=== PATIENT | female | born 1950 | race African-American/Black ===

== ENCOUNTER 2016-07-26 19:16 | Inpatient (IN) | payer OTHER ==
--- NOTE | ~2016-07-26 | DS ---
Discharge Summary [facility] [address] [place]. [address] NAME: CHELSY SAUCEDA : 48 STATUS : DIS IN PAT#: [id number] AGE: 65 ADM/REG DATE : 07/26/16 MR#: [id number] REPORT SERV DATE: 08/01/16 DICTATED BY: AYESHA REECE DATE: 07/31/16 REPORT STATUS : Draft TRANSCRIBED BY: MODL DATE: 07/31/16 ADMISSION DATE: 07/26/2016 DISCHARGE DATE: 07/31/2016 PCP: Out of town physician in [place], [place]. CONSULTING PHYSICIAN: 1. Dr. Rao for Urology. 2. Dr. Shukri Feng, COMMUNITY DEVELOPMENT COORDINATOR. FINAL DIAGNOSES: 1. Acute diverticulitis, improving. 2. Uterine fibroids. 3. Urinary retention, resolved. 4. Hypertension. 5. Myasthenia gravis. 6. Status post hypokalemia. 7. Tobacco abuse. 8. Low TSH. DIAGNOSTIC EXAMS: Echocardiogram showing normal left ventricular size with preserved ejection fraction of 55% to 60%, mild left atrial enlargement, normal right ventricular size and systolic function, mild aortic valve sclerosis without stenosis. CAT scan of abdomen and pelvis showing multiple pelvic masses; moderate diverticulosis, ascending and descending colon; no acute diverticulitis pattern, although there is a possible thickened segment of the sigmoid colon in the left upper pelvis; simple hepatic cysts. Vaginal ultrasound showing lobulated masses arising from the uterus and an obscured portion of the uterus, may represent leiomyomas or sarcoma, were identified. The endometrial stripe is abnormal in appearance, thickness of 6 mm. Findings suggest endometrial hyperplasia, neoplasia, small volume ascites. HOSPITAL COURSE: Please refer to the H and P done by Dr. Owens dated on 07/27/2016. Briefly, this is a 65-year-old female from the [place], comes in for abdominal pain. The patient admitted to be following up with the doctor in the [place] and had an acute diverticulitis at that time. She also was being followed by COMMUNITY DEVELOPMENT COORDINATOR and she was told that she has uterine fibroids and that just needs to be followed up. The patient came here to visit her family and she started having some abdominal pain, nausea, and vomiting. The patient then came to the emergency room, was found to have an acute diverticulitis and was placed on antibiotics. The patient was then found to have a urinary retention when a Gutierrez was placed and Urology consultation was done. Further evaluation revealed that the patient has pelvic masses. A COMMUNITY DEVELOPMENT COORDINATOR consult and an ultrasound was done. She was seen in consultation by Dr. Feng who believes that these are all uterine fibroids and to follow up as an outpatient. This was offered to the patient, but she said that she will be going back to [place] and she has a COMMUNITY DEVELOPMENT COORDINATOR person there. Meanwhile, we got Dr. Rao involved for the urinary retention and he wanted to follow up the patient as an outpatient. Throughout her stay here, she wanted the Gutierrez out, so we discontinued it and she was able to urinate without any problems. Discharge Summary [place] [id number] [facility] [place] [place]. [address] NAME: CHELSY SAUCEDA : 49 STATUS : DIS IN PAT#: [id number] AGE: 65 ADM/REG DATE : 07/26/16 MR#: [id number] REPORT SERV DATE: 08/01/16 DICTATED BY: AYESHA REECE DATE: 07/31/16 REPORT STATUS : Draft TRANSCRIBED BY: TUNDE DATE: 07/31/16 Meanwhile, she continued having this pain, initially needing IV Dilaudid, however, she said that the pain is getting better, that she was not taking it for the last 24 hours and just getting the Percocet. She expressed her wishes to go home. Vital signs are stable. I told her that the white count is still elevated and she needs to follow up with her doctors and to continue the antibiotics. She rather go home and do this, but she was warned that if there is increase in pain, bleeding, nausea and vomiting, fever, not to hesitate to come back to the emergency room. She wanted a copy of her labs and imaging, I will ask my departmental secretary to do that and she will need to follow up with her PCP and COMMUNITY DEVELOPMENT COORDINATOR as soon as she gets to [place]. Her home medications would be multivitamin once a day, Procardia XL 60 mg a day, Mestinon 120 mg every four hours, Gas-X 80 mg p.r.n., Artificial Tears as needed, Pepto-Bismol as needed. She will be given three prescriptions for Levaquin 500 mg p.o. daily and Flagyl 500 mg p.o. t.i.d. both for 10 more days and then Percocet 7.5/325 one tablet p.o. q.8 h., I am going to give her 30 tablets of this. This has been explained to the patient at length with multiple questions answered. TIME SPENT: 40 minutes. ROWENA/TUNDE Ayesha Reece M.D. / [id number] CC: Ayesha Reece M.D.
--- NOTE | ~2016-07-26 | HP ---
History And Physical [place] [address] [facility] [place]. [address] NAME: CHELSY SAUCEDA : 49 STATUS : ADM IN [facility]#: [id number] AGE: 65 ADM/REG DATE : 07/26/16 MR#: [id number] REPORT SERV DATE: 07/27/16 DICTATED BY: CED STERLING DATE: 07/27/16 REPORT STATUS : Draft TRANSCRIBED BY: TUNDE DATE: 07/27/16 DATE OF ADMISSION: 07/26/2016 CHIEF COMPLAINT: A 65-year-old female visiting from [place], [place], now presenting with significant abdominal pain with vomiting. HISTORY OF PRESENTING ILLNESS: The patient's history was obtained through careful interview with the patient and sister. The patient states that she was in usual state of health when only in the morning of admission after eating a large breakfast of sausage eggs, grits, and milk, developed extreme, nausea, vomiting, and new-onset abdominal pain. She describes left lower quadrant abdominal pain that radiates into suprapubic area, is cramping quality, 9/10 severity. She developed elevated blood pressure, rigors, and chills, but no fevers. She had a dry mouth, felt lightheaded, and states she almost passed out. No recent illness otherwise. No blood in her stool. No weight loss. No shortness of breath. REVIEW OF SYSTEMS: Otherwise, a 14-point review of systems was obtained and was negative. PAST MEDICAL HISTORY: 1. Myasthenia gravis. 2. Hypertension. PAST SURGICAL HISTORY: Denies any. ALLERGIES: NO KNOWN DRUG ALLERGIES. SOCIAL HISTORY: The patient lives in [place], [place]. She is single, visiting her sister. She has four children, two who live in [place] and two who live in [place]. She smokes cigarettes, but does not drink alcohol. FAMILY HISTORY: Mother is on dialysis. Father was blind. CURRENT MEDICATIONS: Include eye drops, Pepto-Bismol, ear wax solution, ibuprofen p.r.n., multivitamin, naproxen p.r.n., nifedipine extended release 60 mg p.o. daily, Mestinon 120 mg p.o. q.4 hours scheduled, Gas-X p.r.n. PHYSICAL EXAMINATION: VITAL SIGNS: Temperature 97.8, pulse 69, blood pressure 200/91, respiratory rate 20, O2 History And Physical [address] [place]. [address] NAME: CHELSY SAUCEDA : 49 STATUS : ADM IN PAT#: [id number] AGE: 65 ADM/REG DATE : 07/26/16 MR#: [id number] REPORT SERV DATE: 07/27/16 DICTATED BY: CED STERLING DATE: 07/27/16 REPORT STATUS : Draft TRANSCRIBED BY: TUNDE DATE: 07/27/16 saturation 99% on room air. GENERAL: A pleasant, cooperative female, but in evidence of some distress secondary to her ongoing abdominal discomfort. HEENT: Pupils equal, round, and reactive to light. No conjunctival pallor. No scleral icterus. Nares are patent. Oropharynx is clear of obstruction. Mildly dry mucous membranes. NECK: Trachea midline. No thyromegaly. LYMPH: No cervical lymphadenopathy. No supraclavicular lymphadenopathy. RESPIRATORY: Generally clear to auscultation at the bases. No wheezes, no rales, no rhonchi. The patient has a normal respiratory effort. CARDIOVASCULAR: Regular rate and rhythm. The patient does have what appears to be an S4 gallop and a likely systolic 3/6 murmur. There is also noted pulsatile jugular venous distention up to the angle of the jaw. No current extremity edema is appreciated, though. ABDOMEN: The patient has significant left lower quadrant and suprapubic abdominal discomfort, no guarding though, no rebound. A nondistended abdomen with active bowel tones. No hepatosplenomegaly. DERMATOLOGICAL: Warm and dry extremities. No pallor, no cyanosis. PSYCHIATRIC: Normal affect. Good mood. Alert and oriented x3. LABORATORY DATA: White blood cell count 13.1, hemoglobin 14, hematocrit 44, platelets 309. Sodium 142, potassium 3.4, chloride 105, bicarb 25, BUN 16, creatinine 0.9, glucose 171, lipase 87. Liver enzymes within normal limits. STUDIES: CT scan of the abdomen and pelvis shows pelvic masses up to 5.8 x 5.9 x 6.4 cm. There is urinary retention with bladder distention. There may be some subtle changes of diverticulitis. ASSESSMENT AND PLAN: 1. Acute diverticulitis. I believe this is the main cause of her current symptoms. By exam, she has left lower quadrant abdominal discomfort, her white blood cell count of 13.1, and there seem to be subtle CT scan changes. We will place on IV antibiotics and monitor. 2. Pelvic masses. Check a CA-125. Check ultrasound of the pelvis. Consult component inspector, Dr. Shukri Feng. 3. Bladder obstruction. Place Gutierrez catheter. Consult Urology, Dr. Elder. 4. Hypertensive urgency. Obtain better pain control. Use p.r.n. medications. 5. Murmur with an S4 gallop and jugular venous distention. Check an echocardiogram. [facility]/EMILE Ced Sterling M.D. / [id number] History And Physical [address] [address] NAME: HCELSY SAUCEDA : 48 STATUS : ADM IN PAT#: [id number] AGE: 65 ADM/REG DATE : 07/26/16 MR#: [id number] REPORT SERV DATE: 07/27/16 DICTATED BY: CED STERLING DATE: 07/27/16 REPORT STATUS : Draft TRANSCRIBED BY: TUNDE DATE: 07/27/16 CC: Bernard Puckett M.D.
--- NOTE | ~2016-07-26 | CN ---
Consultation Report [facility] [address] [place]. [address] NAME: CHELSY SAUCEDA : 48 STATUS : ADM IN [facility]#: [id number] AGE: 65 ADM/REG DATE : 07/26/16 MR#: [id number] REPORT SERV DATE: 07/28/16 DICTATED BY: SCOTT SHANNON DATE: 07/28/16 REPORT STATUS : Draft TRANSCRIBED BY: TUNDE DATE: 07/28/16 CONSULTATION DATE OF CONSULTATION: 07/27/2016 REASON FOR CONSULTATION: Pelvic masses. HISTORY: This is a 65-year-old black female, 3, para 4, menopausal for 15 years, admitted for abdominal pain. Gastritis on 07/26/2016, she is visiting from [place]. The onset of her abdominal pain and nausea came after eating a heavy breakfast. Pain is consistent with the pain she has had in the past from diverticulitis, but severe on day of admission. She has no pelvic bleeding or pain in the past from gynecological problems. No history of urinary retention. She does have a history of diverticulitis and avoids corn and nuts. PAST SURGICAL HISTORY: No past surgical history. PAST MEDICAL HISTORY: Include hypertension and myasthenia gravis. MEDICATIONS: Include Procardia 60 mg a day and pyridostigmine bromide for myasthenia gravis. ALLERGIES: NO KNOWN ALLERGIES. CT AND ULTRASOUND CONSISTENT WITH MULTIPLE UTERINE FIBROIDS PEDUNCULATED OR WITHIN THE UTERINE DAVIS ITSELF APPROXIMATELY 5 CM TO 6 CM. NORMAL PERITONEAL FLUID, NORMAL ENDOMETRIAL THICKENING AT 6 MM. PHYSICAL EXAMINATION: GENERAL: Well developed, well nourished, black female in no apparent distress. ABDOMEN: Subjectively pain improved, but still with left upper quadrant or left CVA tenderness. Abdomen with uterine fundus consistent with approximately 16-week size uterus. Abdomen is benign and soft. Gutierrez catheter is in place, which was placed in the emergency room for urinary retention. IMPRESSION: Diverticulitis acute, asymptomatic uterine fibroids, possible urinary retention. PLAN: To follow up the patient after discharge unless fibroids or uterus were thought to be a factor in the urinary retention. CIRILO/TUNDE Scott Consultation Report [facility] [address] [facility] [address] NAME: CHELSY SAUCEDA : [birth year] STATUS : ADM IN PAT#: [id number] AGE: 65 ADM/REG DATE : 07/26/16 MR#: [id number] REPORT SERV DATE: 07/28/16 DICTATED BY: SCOTT SHANNON DATE: 07/28/16 REPORT STATUS : Draft TRANSCRIBED BY: MODL DATE: 07/28/16 Sal Shannon / [id number] CC: Bernard Puckett M.D.
--- NOTE | ~2016-07-26 | CN ---
Consultation Report [facility] [address] [place]. [address] NAME: CHELSY SAUCEDA : 48 STATUS : ADM IN [facility]#: [id number] AGE: 65 ADM/REG DATE : 07/26/16 MR#: [id number] REPORT SERV DATE: 07/28/16 DICTATED BY: CHETAN CASTILLO DATE: 07/27/16 REPORT STATUS : Draft TRANSCRIBED BY: MODuBtch DATE: 07/27/16 CONSULTATION DATE OF CONSULTATION: 07/27/2016 REASON FOR CONSULTATION: Urinary retention. HISTORY OF PRESENT ILLNESS: Ms. Sauceda is a 65-year-old female who hails from the from [facility]. She is here visiting family. She was in her usual state of health when she was found to have urinary retention and abdominal pain. She presented to the ER. A Gutierrez catheter was placed. She had 600 mL of urine in her bladder. She is found to have multiple uterine masses, which appeared to be fibroids and according to her are a known entity. Her past urologic history is notable for straining and double voiding at night. She does not have a urologist. She is not followed by symptoms. This has never happened in the past. I have been asked to consult given her urinary retention. PAST MEDICAL HISTORY: Myasthenia gravis and hypertension. SURGICAL HISTORY: None. ALLERGIES: NONE. SOCIAL HISTORY: Lives in [place]. She is single. She has 4 kids. She smokes cigarettes. She does not drink alcohol. FAMILY HISTORY: Noncontributory. MEDICATIONS: Reviewed and listed in the chart. REVIEW OF SYSTEMS: A 12-point review of systems was performed. Pertinent positives listed in the HPI. PHYSICAL EXAMINATION: VITAL SIGNS: Temperature 98.1, pulse in the 60s, blood pressure 126/65, saturating 97% on room air. GENERAL: She is in no acute distress. She appears her stated age. HEENT: Her head is normocephalic and atraumatic. LUNGS: Breathing is nonlabored. She is . Her pulse is regular in rate and rhythm. ABDOMEN: Soft, nontender, nondistended. She has no CVA tenderness. She is alert oriented x3. Her urine is clear. LABORATORY DATA: Her white count is 12.1 and hemoglobin is 0.9. Urinalysis is negative for infection. Consultation Report [place] [address] [place]. [address] NAME: CHELSY SAUCEDA : [birth year] STATUS : ADM IN PAT#: [id number] AGE: 65 ADM/REG DATE : 07/26/16 MR#: [id number] REPORT SERV DATE: 07/28/16 DICTATED BY: CHETAN CASTILLO DATE: 07/27/16 REPORT STATUS : Draft TRANSCRIBED BY: TUNDE DATE: 07/27/16 IMAGING: CT scan of the abdomen pelvis without contrast was performed. She has a large pelvic masses, which seemed to be fibroids, on pelvic ultrasound. She has no hydronephrosis. ASSESSMENT AND PLAN: Ms. Sauceda has urinary retention in the setting of active diverticulitis as well as uterine fibroids. I explained to her that this is either an obstructive process from her uterus versus decreased detrusor function in the setting of a nearby infection. Either case, she needs to have a catheter for 5 days. On Monday, we will discharge her catheter either in the hospital or over my office. If she is able to void, then she is unable to void or if she needs further workup including cystoscopy and possible urodynamics to determine this is an obstructive versus detrusor failure issue. Please call if further questions. VARUN/TUNDE Chetan Castillo MD / [id number] CC: Bernard Puckett M.D.
[2016-07-26 16:42] LABS: BASOPHILS 0.6 %; BASOPHILS ABSOLUTE 0.08 10/3/uL (0.0-0.16); EOSINOPHILS 0.2 %; EOSINOPHILS ABSOLUTE 0.02 10/3/uL (0.0-0.53); ER CBC TAT 0 Hrs 05 Mins; HEMATOCRIT 43.8 % (36.0-48.0); HEMOGLOBIN 14.4 g/dL (12.0-16.0); IMMATURE GRANULOCYTES 0.3 %; IMMATURE GRANULOCYTES ABSOLUTE 0.04 10/3/uL (0.0-0.11); LYMPHOCYTES 14.8 %; LYMPHOCYTES ABSOLUTE 1.94 10/3/uL (0.67-4.30); MEAN CORPUS HGB CONC 32.9 g/dL (32.0-36.0); MEAN CORPUSCULAR HEMOGLOB 29.1 pg (26.0-34.0); MEAN CORPUSCULAR VOLUME 88.7 fL (80-100); MONOCYTES 3.1 %; MONOCYTES ABSOLUTE 0.41 10/3/uL (0.21-1.20); NEUTROPHILS ABSOLUTE 10.62 10/3/uL (2.02-8.40); PLATELET COUNT 309 10/3/uL (150-400); RBC DISTRIBUTION WIDTH 16.6 % (12.0-16.0); RED CELL COUNT 4.94 10/6/uL (4.0-5.6); WHITE BLOOD CELLS 13.1 10/3/uL (4.5-10.5)
[2016-07-26 16:43] LABS: MANUAL DIFF NO %
[2016-07-26 17:01] LABS: A/G RATIO 0.9 (0.7-1.9); ALBUMIN 4.2 G/DL (3.5-5.0); ALKALINE PHOSPHATASE 97 U/L (45-117); BUN (BLOOD UREA NITROGEN) 16 MG/DL (6-23); CALCIUM, SERUM 9.3 MG/DL (8.5-10.4); CHLORIDE, SERUM 105 MMOL/L (96-112); CO2 (CARBON DIOXIDE) 25 MMOL/L (24-34); GFR AFRICAN AMERICAN 77 ML/MIN (>=60); GFR NON AFRICAN AMERICAN 67 ML/MIN (>=60); GLOBULIN 4.5 G/DL (2.5-4.1); GLUCOSE, SERUM 171 MG/DL (60-99); POTASSIUM, SERUM 3.4 MMOL/L (3.5-5.3); SGOT(AST) 18 U/L (5-40); SGPT(ALT) 17 U/L (5-65); SODIUM, SERUM 142 MMOL/L (135-148); TOTAL BILIRUBIN 0.5 MG/DL (0-1.2); TOTAL PROTEIN 8.7 G/DL (6.0-8.5)
[2016-07-26 17:43] LABS: WBC (NOT ORDERED) (RFLEX) 0 (0-5)
[2016-07-26 17:50] LABS: ASCORBIC ACID (UR NOT ORDER) NEG (NEG); BILIRUBIN, URINE NEGATIVE (NEG); ER URINALYSIS TAT 0 Hrs 07 Mins; KETONE, URINE 20 MG/DL (NEG); LEUKOCYTE ESTERASE(NOT OR NEG (NEG); NITRITE (URINE) NEG (NEG)
[2016-07-26] MEDS ORDERED: NXL6 PO (20:44)
[2016-07-26] MEDS ORDERED: PYRID60 PO ×2 (20:46→20:47)
[2016-07-26] MEDS ORDERED: IBU400 PO (20:49)
[2016-07-26] MEDS ORDERED: THERGRANM PO (20:49)
[2016-07-26] MEDS ORDERED: GAS-X80 MG PO (20:50)
[2016-07-26] MEDS ORDERED: TEARS PLUS OPH (20:51)
[2016-07-26] MEDS ORDERED: ALEVE220 MG PO (20:53)
[2016-07-26] MEDS ORDERED: [UNRECOGNIZED DRUG - OTHER] OT (20:53)
[2016-07-26] MEDS ORDERED: PEPTO BISMOL LIQ1 ML PO (20:55)
[2016-07-26] MEDS ORDERED: CHLORASEPTIC LOZENGE PO (20:57)
[2016-07-27 06:56] LABS: BASOPHILS 0.2 %; BASOPHILS ABSOLUTE 0.03 10/3/uL (0.0-0.16); EOSINOPHILS 0.1 %; EOSINOPHILS ABSOLUTE 0.01 10/3/uL (0.0-0.53); HEMOGLOBIN 13.2 g/dL (12.0-16.0); IMMATURE GRANULOCYTES 0.2 %; IMMATURE GRANULOCYTES ABSOLUTE 0.02 10/3/uL (0.0-0.11); LYMPHOCYTES 19.4 %; LYMPHOCYTES ABSOLUTE 2.34 10/3/uL (0.67-4.30); MEAN CORPUS HGB CONC 33.8 g/dL (32.0-36.0); MEAN CORPUSCULAR HEMOGLOB 29.7 pg (26.0-34.0); MEAN CORPUSCULAR VOLUME 87.9 fL (80-100); MEAN PLATELET VOLUME 10.3 fL (9.2-13.0); MONOCYTES 7.2 %; MONOCYTES ABSOLUTE 0.87 10/3/uL (0.21-1.20); NEUTROPHILS 72.9 %; NEUTROPHILS ABSOLUTE 8.78 10/3/uL (2.02-8.40); PLATELET COUNT 274 10/3/uL (150-400); RBC DISTRIBUTION WIDTH 16.5 % (12.0-16.0); RED CELL COUNT 4.45 10/6/uL (4.0-5.6); WHITE BLOOD CELLS 12.1 10/3/uL (4.5-10.5)
[2016-07-27 06:58] LABS: HEMATOCRIT 39.1 % (36.0-48.0); MANUAL DIFF NO %
[2016-07-27 07:02] LABS: INTERNATIONAL NORMAL RATI 1.2 UNITS (-); PARTIAL THROMBO TIME 27.6 SEC (22.5-37.2); PROTIME (NOT ORD) 14.9 SEC (12.0-14.5)
[2016-07-27 07:50] LABS: BUN (BLOOD UREA NITROGEN) 18 MG/DL (6-23); CALCIUM, SERUM 8.8 MG/DL (8.5-10.4); CHLORIDE, SERUM 108 MMOL/L (96-112); CO2 (CARBON DIOXIDE) 27 MMOL/L (24-34); CREATININE 0.93 MG/DL (0.55-1.02); GFR AFRICAN AMERICAN 74 ML/MIN (>=60); GFR NON AFRICAN AMERICAN 64 ML/MIN (>=60); POTASSIUM, SERUM 3.5 MMOL/L (3.5-5.3); SGOT(AST) 14 U/L (5-40); SGPT(ALT) 14 U/L (5-65); SODIUM, SERUM 143 MMOL/L (135-148); TOTAL BILIRUBIN 0.5 MG/DL (0-1.2); TOTAL PROTEIN 7.3 G/DL (6.0-8.5); TROPONIN I <0.02 NG/ML (<0.05)
[2016-07-27 07:51] LABS: A/G RATIO 0.8 (0.7-1.9); ALBUMIN 3.3 G/DL (3.5-5.0); ALKALINE PHOSPHATASE 66 U/L (45-117); GLUCOSE, SERUM 93 MG/DL (60-99)
[2016-07-27 08:02] LABS: PROCALCITONIN 0.05 ng/mL (<0.5)
[2016-07-28 13:12] LABS: HEMATOCRIT 38.4 % (36.0-48.0); HEMOGLOBIN 12.3 g/dL (12.0-16.0); MEAN CORPUSCULAR HEMOGLOB 29.1 pg (26.0-34.0); MEAN PLATELET VOLUME 10.7 fL (9.2-13.0); PLATELET COUNT 251 10/3/uL (150-400); RBC DISTRIBUTION WIDTH 16.6 % (12.0-16.0); RED CELL COUNT 4.23 10/6/uL (4.0-5.6); WHITE BLOOD CELLS 10.8 10/3/uL (4.5-10.5)
[2016-07-28 13:15] LABS: MANUAL DIFF YES %; MEAN CORPUSCULAR VOLUME 90.8 fL (80-100)
[2016-07-28 13:25] LABS: BUN (BLOOD UREA NITROGEN) 16 MG/DL (6-23); CALCIUM, SERUM 8.7 MG/DL (8.5-10.4); CHLORIDE, SERUM 109 MMOL/L (96-112); CO2 (CARBON DIOXIDE) 26 MMOL/L (24-34); CREATININE 0.92 MG/DL (0.55-1.02); GFR AFRICAN AMERICAN 75 ML/MIN (>=60); GFR NON AFRICAN AMERICAN 65 ML/MIN (>=60); GLUCOSE, SERUM 89 MG/DL (60-99); POTASSIUM, SERUM 3.7 MMOL/L (3.5-5.3); SODIUM, SERUM 140 MMOL/L (135-148)
[2016-07-28 13:41] LABS: BAND NEUTROPHILS 1 %; BASOPHILS 1 %; BASOPHILS ABSOLUTE (CALC) 0.11 10/3/uL (0.0-0.16); LYMPHOCYTES 18 %; LYMPHOCYTES ABSOLUTE (CALC) 1.94 10/3/uL (0.67-4.30); MONOCYTES 3 %; MONOCYTES ABSOLUTE (CALC) 0.32 10/3/uL (0.21-1.20); NEUTROPHILS ABSOLUTE (CALC) 8.42 10/3/uL (2.02-8.40); PLATELET ESTIMATE ADQ (ADEQUATE); SEGMENTED NEUTROPHIL (0) 77 %; TOTAL NUCLEATED CELLS 100
[2016-07-28 13:42] LABS: RBC MORPHOLOGY NORM (NORMAL)
[2016-07-29 05:38] LABS: BASOPHILS 0.4 %; BASOPHILS ABSOLUTE 0.05 10/3/uL (0.0-0.16); EOSINOPHILS 0.4 %; EOSINOPHILS ABSOLUTE 0.06 10/3/uL (0.0-0.53); HEMATOCRIT 35.6 % (36.0-48.0); HEMOGLOBIN 11.7 g/dL (12.0-16.0); IMMATURE GRANULOCYTES 0.1 %; IMMATURE GRANULOCYTES ABSOLUTE 0.02 10/3/uL (0.0-0.11); LYMPHOCYTES 15.1 %; LYMPHOCYTES ABSOLUTE 2.02 10/3/uL (0.67-4.30); MEAN CORPUS HGB CONC 32.9 g/dL (32.0-36.0); MEAN CORPUSCULAR HEMOGLOB 29.4 pg (26.0-34.0); MEAN CORPUSCULAR VOLUME 89.4 fL (80-100); MEAN PLATELET VOLUME 10.3 fL (9.2-13.0); MONOCYTES ABSOLUTE 1.47 10/3/uL (0.21-1.20); NEUTROPHILS ABSOLUTE 9.74 10/3/uL (2.02-8.40); PLATELET COUNT 237 10/3/uL (150-400); RBC DISTRIBUTION WIDTH 16.2 % (12.0-16.0); RED CELL COUNT 3.98 10/6/uL (4.0-5.6); WHITE BLOOD CELLS 13.4 10/3/uL (4.5-10.5)
[2016-07-29 05:41] LABS: MANUAL DIFF NO %
[2016-07-29 05:55] LABS: BUN (BLOOD UREA NITROGEN) 15 MG/DL (6-23); CALCIUM, SERUM 8.9 MG/DL (8.5-10.4); CHLORIDE, SERUM 108 MMOL/L (96-112); CO2 (CARBON DIOXIDE) 25 MMOL/L (24-34); CREATININE 0.74 MG/DL (0.55-1.02); GFR AFRICAN AMERICAN 98 ML/MIN (>=60); GFR NON AFRICAN AMERICAN 84 ML/MIN (>=60); GLUCOSE, SERUM 106 MG/DL (60-99); POTASSIUM, SERUM 3.8 MMOL/L (3.5-5.3); SODIUM, SERUM 141 MMOL/L (135-148)
[2016-07-30 07:42] LABS: BASOPHILS 0.3 %; BASOPHILS ABSOLUTE 0.04 10/3/uL (0.0-0.16); EOSINOPHILS 0.6 %; EOSINOPHILS ABSOLUTE 0.08 10/3/uL (0.0-0.53); HEMATOCRIT 35.2 % (36.0-48.0); IMMATURE GRANULOCYTES 0.4 %; IMMATURE GRANULOCYTES ABSOLUTE 0.05 10/3/uL (0.0-0.11); MEAN CORPUS HGB CONC 34.1 g/dL (32.0-36.0); MEAN CORPUSCULAR HEMOGLOB 30.2 pg (26.0-34.0); MEAN CORPUSCULAR VOLUME 88.7 fL (80-100); MEAN PLATELET VOLUME 11.1 fL (9.2-13.0); MONOCYTES 10.7 %; MONOCYTES ABSOLUTE 1.53 10/3/uL (0.21-1.20); NEUTROPHILS ABSOLUTE 10.55 10/3/uL (2.02-8.40); PLATELET COUNT 263 10/3/uL (150-400); RED CELL COUNT 3.97 10/6/uL (4.0-5.6); WHITE BLOOD CELLS 14.3 10/3/uL (4.5-10.5)
[2016-07-30 07:44] LABS: MANUAL DIFF NO %
[2016-07-31 06:25] LABS: BASOPHILS 0.3 %; BASOPHILS ABSOLUTE 0.04 10/3/uL (0.0-0.16); EOSINOPHILS 0.5 %; EOSINOPHILS ABSOLUTE 0.08 10/3/uL (0.0-0.53); HEMATOCRIT 34.6 % (36.0-48.0); HEMOGLOBIN 11.7 g/dL (12.0-16.0); IMMATURE GRANULOCYTES 0.3 %; IMMATURE GRANULOCYTES ABSOLUTE 0.04 10/3/uL (0.0-0.11); LYMPHOCYTES ABSOLUTE 1.93 10/3/uL (0.67-4.30); MEAN CORPUS HGB CONC 33.8 g/dL (32.0-36.0); MEAN CORPUSCULAR HEMOGLOB 29.8 pg (26.0-34.0); MEAN PLATELET VOLUME 10.4 fL (9.2-13.0); MONOCYTES 10.1 %; NEUTROPHILS 75.8 %; NEUTROPHILS ABSOLUTE 11.22 10/3/uL (2.02-8.40); PLATELET COUNT 280 10/3/uL (150-400); RBC DISTRIBUTION WIDTH 15.9 % (12.0-16.0); RED CELL COUNT 3.93 10/6/uL (4.0-5.6); WHITE BLOOD CELLS 14.8 10/3/uL (4.5-10.5)
[2016-07-31 06:26] LABS: MANUAL DIFF NO %
[2016-07-31] MEDS ORDERED: PCET PO (11:22)
[2016-07-31] MEDS ORDERED: FLAG500TAB PO (11:23)
[2016-07-31] MEDS ORDERED: LEVAQUIN750 MG PO (11:23)
== END 2016-07-31 14:07 | disposition home or self-care (01) | DRG 392 ==
LOC: ER 19:16 → 5SO 21:19
PROVIDERS: Emergency Medicine; Hospitalist; Internal Medicine
DX: K57.32 Diverticulitis of large intestine without perforation or abscess without bleeding (principal); G70.00 Myasthenia gravis without (acute) exacerbation; N13.8 Other obstructive and reflux uropathy; D25.9 Leiomyoma of uterus, unspecified; F17.210 Nicotine dependence, cigarettes, uncomplicated; N32.0 Bladder-neck obstruction; I16.0 Hypertensive urgency; R33.9 Retention of urine, unspecified; I10 Essential (primary) hypertension; E87.6 Hypokalemia
CPT/HCPCS: 74176; 76830; 76856; 80048; 80053; 81001; 83605; 83690; 83735; 83880; 84145; 84443; 84484; 85025; 85610; 85730; 86304; 93306; 96374; 96375; 96376; 99285; A9270-GY; C8929; J0360; J1170; J1956; J1980; J2550; Q9957